=== PATIENT | female | born 1995 | race Caucasian/White ===

== ENCOUNTER 2020-12-16 08:51 | Emergency (ER) | payer MEDICAID ==
[~2020-12-16] VITALS: Ht 157.5 cm; Wt 59.0 kg
--- NOTE | 2020-12-16 09:04 | NUR ---
C/O NAUSEA AND VOMITING SINCE THIS AM, "ATE SHRIMP TACO LAST NIGHT" PATIENT A/OX4, BREATHING EVEN AND UNLABORED, NO SOB NOTED. 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
--- NOTE | 2020-12-16 09:05 | NUR ---
DR. LIPSCOMB AT BEDSIDE FOR EVAL
[2020-12-16] MEDS ORDERED: ONDANSETRON HCL/PF 4 MG/2 ML VIAL ONE (09:07)
[2020-12-16] MEDS ORDERED: ONDANSETRON HCL/PF - ER 4 MG/2 ML VIAL IV ONE (09:30)
[2020-12-16] MEDS ORDERED: IV NS 0.9% 2,000 ML IV ONE (09:30)
[2020-12-16 09:39] LABS: CALCIUM, SERUM 8.9 mg/dL (8.5-10.1); CREATININE 0.8 mg/dL (0.6-1.3); POTASSIUM 4.1 mmol/L (3.5-5.1)
[2020-12-16] MEDS ORDERED: HALOPERIDOL LACTATE INJ 5 MG/ML VIAL ONE (09:50)
[2020-12-16] MEDS ORDERED: Magnesium 1GM/D5W 100ML PREMIX 100 ML IV ONE (09:54)
--- NOTE | 2020-12-16 09:55 | NUR ---
PATIENT UNABLE TO GIVE URINE AT THIS TIME.
[2020-12-16] MEDS ORDERED: Magnesium 1GM/D5W 100ML PREMIX 100 ML IV SCH (10:00)
[2020-12-16] MEDS ORDERED: HALOPERIDOL LACTATE INJ 5 MG/ML VIAL IV ONE (10:00)
--- NOTE | 2020-12-16 10:05 | NUR ---
PT C/O FEELING ANXIOUS.
--- NOTE | 2020-12-16 10:10 | NUR ---
PATIENT WENT TO RESTROOM.
--- NOTE | 2020-12-16 10:20 | NUR ---
PATIENT PULLED OUT IV, BLOOD AND IV FLUIDS DRIPPING ON THE FLOOR. PATIENT PROVIDED WITH GAUZE FOR PRESSURE.
[2020-12-16] MEDS ORDERED: ONDA4TAB11 PO (10:34)
--- NOTE | 2020-12-16 10:35 | NUR ---
PATIENT A/OX4, PROVIDED WITH FLUIDS AND MEDICATIONS FOR NAUSEA. PATIENT CEASED VOMITING AT THIS TIME. AMBULATORY WITH STEADY GAIT. NO DISTRESS NOTED. DR. LIPSCOMB AT BEDSIDE, EXPLAINING RESULTS AND ACI.
[2020-12-16 10:50] VITALS: BP 100/63
--- NOTE | 2020-12-16 10:50 | NUR ---
Patient a/ox4, breathing even and unlabored, no sob noted, needs attended. Patient discharged to home in stable condition. Written and verbal after care instructions given. Patient verbalizes understanding of instruction.
== END 2020-12-16 10:50 | disposition home or self-care (01) ==
LOC: ER 08:51
DX: K52.9 Noninfective gastroenteritis and colitis, unspecified (principal); F32.9 Major depressive disorder, single episode, unspecified; F10.10 Alcohol abuse, uncomplicated; F17.200 Nicotine dependence, unspecified, uncomplicated; Y90.9 Presence of alcohol in blood, level not specified; Z88.0 Allergy status to penicillin; Z60.2 Problems related to living alone; Z79.899 Other long term (current) drug therapy
CPT/HCPCS: 36415; 80048; 93005; 96361; 96365; 96375; 99284; J1630; J2405 ×2; J3475; J7030 ×2